=== PATIENT | female | born 1950 | race Caucasian/White ===

== ENCOUNTER 2017-09-25 10:56 | Outpatient (CLI) | payer MEDICARE ==
--- NOTE | 2017-09-25 17:40 | RAD ---
LEFT FOOT THREE VIEWS: 09/25/17 No fracture was detected. No periosteal reaction of concern was noted. All bony structures appeared i ntact. A large calcaneal spur was seen. IMPRESSION: No acute bony finding. POS: HOME
== END 2017-09-25 10:57 | disposition home or self-care (01) ==
LOC: BURRAD 10:56
PROVIDERS: ATTEND Family Medicine
DX: M79.672 Pain in left foot (principal)

== ENCOUNTER 2018-02-10 07:59 | Outpatient (CLI) | payer MEDICARE, MEDICAID ==
--- NOTE | 2018-02-10 19:05 | RAD ---
LEFT HIP TWO VIEWS: Date: 02-10-18 FINDINGS: No fracture or dislocation is seen. Minor bony spurring is present. There is some fragmentation of elma ne around the greater trochanter that may be due to prior trauma. IMPRESSION: Minor arthritic changes. POS: HOME
--- NOTE | 2018-02-10 19:07 | RAD ---
CERVICAL SPINE THREE VIEWS: Date: 02-10-18 FINDINGS: There is loss of the normal cervical lordosis. Degenerative disc disease and spondylosis was seen at multiple levels beginning at C4 and below. All disc spaces are narrowed below C4. There are significa nt osteophytes anteriorly and posteriorly. Cross sectional imaging would be useful to tell if there i s central canal or foraminal stenosis. No fracture or dislocation was seen. The C1 dens distance is n ot widened. The soft tissues are normal in thickness. IMPRESSION: Severe degenerative changes of the cervical spine, especially at C4 and below. POS: HOME
--- NOTE | 2018-02-10 19:08 | RAD ---
RIGHT HIP: Date: 02-10-18 FINDINGS: Three views are submitted. No fracture or dislocation was seen. The joint space is normal in width. T here is some mild bony spurring in the joint. The adjacent pubic ring appears intact. IMPRESSION: Mild arthritic changes. POS: HOME
--- NOTE | 2018-02-10 19:14 | CT ---
CT ABDOMEN AND PELVIS WITH CONTRAST 02/10/[address] of the abdomen and pelvis was done for evaluation of pain. the axial slices were acquired, then coronal and sagittal reconstructions were done. The lung bases are clear. The liver, spleen, pancreas, gallbladder, adrenal glands, kidneys, and abdo dimitrios aorta were unremarkable in appearance. The bowel shows no distention, wall thickening or inflam matory change. No free air or free fluid was seen. CT of the pelvis showed no pelvic masses, fluid collections, or inflammatory changes. The area around each inguinal region was unremarkable. The patient has significant degenerative change in the lumbar region. The L1-L2 disc space was relati vely normal. Beginning at L2-L3 and below, there is some degree of central canal stenosis due to face t arthritic changes and hypertrophy as well as mildly bulging disc. At L3-L4 on the right side, there is lateral recess stenosis due to facet overgrowth and there could be impingement on the exiting rig ht L3 root. There may be a small sequestered fragment on the left at L5-S1. IMPRESSION: 1. No acute intra-abdominal or intrapelvic findings. 2. Significant and severe degenerative change of the lumbar spine. The findings above should be compared with the site of right inguinal pain to determinate if there may be a relationship between t he two. POS: HOME
== END 2018-02-10 08:00 | disposition home or self-care (01) ==
LOC: BURCT 07:59
PROVIDERS: ATTEND Family Medicine
DX: M25.551 Pain in right hip (principal); Z01.812 Encounter for preprocedural laboratory examination; M25.552 Pain in left hip; R10.30 Lower abdominal pain, unspecified; M54.2 Cervicalgia; M47.896 Other spondylosis, lumbar region; M47.892 Other spondylosis, cervical region; M16.0 Bilateral primary osteoarthritis of hip
CPT/HCPCS: 36415; 72040; 74177; 82565